=== PATIENT | male | born 1980 | race Caucasian/White ===

== ENCOUNTER 2023-08-20 17:08 | Emergency (ER) | payer OTHER, SELFPAY ==
[2023-08-20 17:08] VITALS: BP 173/103; PULSE 86; RESP 18; TEMP 36.4; O2SAT 100
--- NOTE | 2023-08-20 18:00 | ED.HA ---
HPI - Headache General Chief Complaint: Headache Stated Complaint: headache x 3 days Time Seen by Provider: 08/20/23 17:50 History of Present Illness HPI Narrative: 43 y/o M with a hz of migraines and depression presents to the ED for a headache x3 days. Pt States the headache is in his right occiput and radiates forward. He states he normally gets headaches in the frontal region. States he has to take Topamax for migraines but does not currently take it. He denies head injury trauma, vision changes, focal numbness or weakness, otalgia or sore throat, fever or nuchal rigidity, vomiting , photophobia. He does endorse associated nausea And phonophobia. States he has been taking Tylenol and ibuprofen without relief. His last doses were 1200 today. Related Data Allergies Allergy/AdvReac Type Severity Reaction Status Date / Time No Known Allergies Allergy Verified 08/20/23 17:11 Review of Systems Review of Systems: CONSTITUTIONAL: Denies fever, chills, or sweats. EYES: Denies visual changes, redness, or discharge. ENT: Denies rhinorrhea, congestion, sore throat, or otalgia. CARDIOVASCULAR: Denies chest pain, palpitations, or edema. RESPIRATORY: Denies cough or dyspnea. GASTROINTESTINAL: Denies abdominal pain, nausea, vomiting, or diarrhea. GENITOURINARY: Denies dysuria or hematuria. SKIN: Denies rash or itching. MUSCULOSKELETAL: Denies back pain, joint pain, or myalgia. NEUROLOGIC: see HPI PSYCHIATRIC: Denies anxiety or depression. Exam Narrative: GENERAL: Well-appearing, well-nourished, and in no acute distress. HEAD: Normocephalic, atraumatic. EYES: PERRLA and EOMI. ENT: Nares clear, no rhinorrhea or epistaxis. Mucous membranes moist. NECK: Supple. CHEST: Clear to auscultation. No respiratory distress. HEART: Regular rate and rhythm. No murmur heard. Normal peripheral pulses. ABDOMEN: Soft, nontender, nondistended, normal active bowel sounds. EXTREMITIES: Normal range of motion. No edema. SKIN: Warm, dry, no rash. NEURO: No focal deficits. Alert and oriented x3. Cranial nerves 2-12 intact. Strength 5/5 in BUE and BLE. Sensation intact throughout. Normal [id number]. No pronator drift. No nystagmus Course Vital Signs Vital signs: Vital Signs Temperature 97.6 F 08/20/23 17:08 Pulse Rate 86 08/20/23 17:08 Respiratory Rate 18 08/20/23 17:08 Blood Pressure 173/103 H 08/20/23 17:08 Pulse Oximetry 100 08/20/23 17:08 Oxygen Delivery Room Air 08/20/23 17:08 Temperature 97.6 F 08/20/23 17:08 Pulse Rate 71 08/20/23 20:03 Respiratory Rate 18 08/20/23 20:03 Blood Pressure 145/93 H 08/20/23 20:03 Pulse Oximetry 98 08/20/23 20:03 Oxygen Delivery Room Air 08/20/23 17:08 MDM - Headache MDM Narrative Medical decision making narrative: 43-year-old male with history of migraines presents to emergency department for headache to his right occiput x3 days. Triage vital significant for hypertension of 173/103, otherwise unremarkable. He is neurovascularly intact, afebrile, no nuchal rigidity. No focal neurologic deficit. Plan to give IV fluids and headache cocktail and re-evaluate. Patient received Benadryl, Compazine and Toradol. Upon re-evaluation he states he feels much better but headache is still somewhat present. I offered a further workup and more pain control, however he declined and states he would like to go home. I advised follow-up with PCP and strict ED return precautions are discussed. He is agreeable with the plan verbalized understanding. Discharged in stable condition. Discharge Plan Discharge Clinical Impression: Headache Patient Disposition: Home, Self-Care Condition: Stable Instructions: Antibiotic Form, Acute Headache (ED) Additional Instructions: your evaluated in the emergency department for headache. Your exam is reassuring. Your given IV fluids and medications for her headache. Please follow-up closely with your primar
[2023-08-20] MEDS: SODIUM CHLORIDE 0.9% IV 1,000 ML 999 ML IV CONT (19:34)
[2023-08-20] MEDS: KETOROLAC 30 MG/ML VIAL (*BKC) IV PUSH (19:35)
[2023-08-20] MEDS: PROCHLORPERAZINE EDISYLATE 10 MG/2 ML VIAL IV PUSH (19:36)
[2023-08-20] MEDS: diphenhydrAMINE HCl INJ 50 MG/ML VIAL 25 MG IV PUSH (19:36)
[2023-08-20 20:03] VITALS: BP 145/93; PULSE 71; RESP 18; O2SAT 98
== END 2023-08-20 20:41 | disposition home or self-care (01) ==
PROVIDERS: Emergency Provider Physician Assistant
DX: R51.9 Headache, unspecified (principal)
CPT/HCPCS: 96361; 96374; 96375; 99284; J0780; J1200; J1885; J7030